=== PATIENT | female | born 1960 | race Caucasian/White ===

== ENCOUNTER 2017-06-18 21:54 | Emergency (ER) | payer MEDICAID | END 2017-06-19 02:30 | disposition home or self-care (01) | LOC: D.ER 21:54 | DX: J06.9 Acute upper respiratory infection, unspecified (principal); I10 Essential (primary) hypertension ==

== ENCOUNTER 2017-07-04 17:46 | Emergency (ER) | payer MEDICAID | END 2017-07-04 19:42 | disposition home or self-care (01) | LOC: D.ER 17:46 | DX: J20.9 Acute bronchitis, unspecified (principal) ==